=== PATIENT | female | born 1990 | race Caucasian/White ===

== ENCOUNTER 2018-07-28 09:40 | Day surgery (SDC) | payer MEDICAID ==
[2018-07-25 09:42] LABS: BASOPHILS 0.2 % (0-2); HEMATOCRIT 40.4 % (36.0-48.0); HEMOGLOBIN 14.1 g/dL (12-16); IMMATURE GRANULOCYTES 0.2 % (0-5); MCH 27.7 pg (26.0-34.0); MCHC 34.9 g/dL (31.0-37.0); MCV 79.4 fL (80.0-100.0); MEAN PLATELET VOLUME 10.5 fL (7.4-10.4); NEUTROPHILS 57.6 % (40-80); PLATELET COUNT 250 10x3/uL (130-400); RBC 5.09 10x6/uL (4.00-5.40)
[~2018-07-28] VITALS: Ht 165.1 cm; Wt 82.1 kg
--- NOTE | ~2018-07-28 | OP ---
PATIENT NAME: ABRAHAN FARRAR MEDICAL RECORD: [id number] :90 LOCATION:D.OPS ADMISSION DATE: SURGEON: ISIAH GONZALEZ MD DATE OF OPERATION: 07/28/2018 PREOPERATIVE DIAGNOSIS: Pelvic pain. POSTOPERATIVE DIAGNOSES: 1. Pelvic pain. 2. Suspect adenomyosis. PROCEDURE: Diagnostic laparoscopy. SURGEON: Isiah Gonzalez MD ELECTRIC MOTOR FITTER: David Yee ANESTHESIOLOGIST: Adam Plunkett MD ANESTHETIC: General. FINDINGS: Uterus enlarged and boggy. Uterus and tubes were unremarkable bilaterally. What was visualized of the abdominal anatomy was also unremarkable. SPECIMENS REMOVED: None. SPECIMEN DISPOSITION: Not applicable. ESTIMATED BLOOD LOSS: Minimal. FLUIDS: Lactated Ringer's 1700 cc. URINE OUTPUT: Quantity sufficient void prior to this procedure. COMPLICATIONS: None. DRAINS: None. INDICATION: The patient is a 28-year-old parous female with pelvic pain. The patient has undergone conservative therapy without resolution of her symptoms. The patient desires investigation into possible causes of pelvic pain. DESCRIPTION OF PROCEDURE: After informed consent was assured, the patient was taken to the operating room. Anesthetic was obtained without difficulty. The patient was now prepped and draped. Incision was made at the umbilicus to accommodate a 5-mm trocar, which was inserted without difficulty; and pneumoperitoneum developed. Accessory port was now placed 2 fingerbreadths above the midline. Through this port, a blunt probe was inserted with the patient in Trendelenburg position. The bowel was swept free of the pelvis. The pelvis was with the findings of slightly enlarged boggy uterus and unremarkable tubes and ovaries. No evidence of active endometriosis was encountered. The pneumoperitoneum was now released as the accessory trocars were removed. Primary trocars were removed. Skin was reapproximated with a subcuticular stitch and Dermabond was applied. Sponge, lap, and needle counts correct times OPERATIVE REPORT [id number] ABRAHAN FARRAR 2. TRANSINT:[id number] Voice Confirmation ID: [id number] DOCUMENT ID: [id number] ISIAH GONZALEZ MD at 1243 CC: [id number] DICTATION DATE: 07/28/18 1143 EMBEDDED SOFTWARE ARCHITECT: 07/28/[address] [facility] 07/28/18 [facility] [address] [place] [address]
[2018-07-28] MEDS ORDERED: REMERON15 MG PO (09:51)
[2018-07-28] MEDS ORDERED: MINIPRESS2 MG PO (09:53)
[2018-07-28] MEDS ORDERED: [UNRECOGNIZED DRUG - OTHER] (09:54)
[2018-07-28] MEDS ORDERED: LEVOXYL25 MCG PO (09:55)
[2018-07-28] MEDS ORDERED: IBUPROFEN800 MG PO (09:55)
[2018-07-28] MEDS ORDERED: VISTARIL25 MG (09:55)
[2018-07-28] MEDS ORDERED: SYEDA 28 TABLE1 EACH PO (09:55)
[2018-07-28 10:03] VITALS: BP 93/66; Ht 165.1 cm; Wt 82.1 kg
[2018-07-28 10:23] LABS: HCG URINE NEGATIVE (NEGATIVE)
== END 2018-07-28 14:11 | disposition home or self-care (01) ==
LOC: D.OPS 09:40 → D.PAN 10:10 → D.OPS 10:30 → D.PAN 10:50 → D.OPS 14:11
PROVIDERS: Obstetrics & Gynecology
DX: N85.2 Hypertrophy of uterus (principal); Z01.812 Encounter for preprocedural laboratory examination